=== PATIENT | male | born 1975 | race Native Hawaiian/Other Pacific Islander ===

== ENCOUNTER 2021-10-22 13:19 | Emergency (ER) | payer OTHER ==
[~2021-10-22] VITALS: Ht 175.3 cm; Wt 77.1 kg
[2021-10-22 13:36] VITALS: BP 125/88; TEMP 98
[2021-10-22 14:16] LABS: PLATELET COUNT 276 K/uL (142-355)
[2021-10-22 14:24] LABS: POTASSIUM 3.4 mmol/L (3.6-5.2)
[2021-10-23] MEDS ORDERED: AMLODIPINE BESYLATE PO (07:49)
[2021-10-23] MEDS ORDERED: LIPITOR40 MG PO (07:50)
[2021-10-23] MEDS ORDERED: GABA300C2 PO (07:51)
[2021-10-23] MEDS ORDERED: LOSA50TA PO (07:52)
[2021-10-23] MEDS ORDERED: MOBIC15 MG PO (07:53)
[2021-10-23] MEDS ORDERED: TAMSULOSIN0.4 MG PO (07:53)
[2021-10-23] MEDS ORDERED: PAROXETINE40 MG PO (07:54)
[2021-10-23] MEDS ORDERED: CYCLOBENZAPRINE10 MG PO (07:55)
[2021-10-23] MEDS ORDERED: HYDROCODONE BIT1 TA1 PO (07:55)
[2021-10-23] MEDS ORDERED: ASPIRIN ADULT L81 M1 PO (07:56)
[2021-10-23] MEDS ORDERED: DULOXETINE HYDR30 MG PO (07:57)
[2021-10-23] MEDS ORDERED: ONDANSETRON HYDR8 MG PO (07:59)
[2021-10-23] MEDS ORDERED: OMEPRAZOLE DR20 MG PO (08:01)
== END 2021-10-22 14:50 | disposition still patient (30) ==
LOC: ED 13:19
PROVIDERS: Hospitalist
DX: F32.89 Other specified depressive episodes (principal); Z11.52 Encounter for screening for COVID-19; Z04.6 Encounter for general psychiatric examination, requested by authority; W01.0XXA Fall on same level from slipping, tripping and stumbling without subsequent striking against object, initial encounter; Y92.89 Other specified places as the place of occurrence of the external cause
CPT/HCPCS: 80053; 85027; 87635; 93005; 99283; U0003